=== PATIENT | female | born 1950 | race Caucasian/White ===

== ENCOUNTER 2019-03-22 09:16 | Outpatient (CLI) | payer BC ==
--- NOTE | 2019-03-22 09:49 | MMO ---
Bilateral MAMMO Bilat Screen [facility]. CLINICAL HISTORY: Patient is 69 years old and is seen for screening. The patient has no family history of breast cancer. The patient has no personal history of cancer. VIEWS: The views performed were: bilateral craniocaudal with tomosynthesis and bilateral mediolateral oblique with tomosynthesis. MAMMOGRAM FINDINGS: There are scattered fibroglandular densities. There are no suspicious masses, suspicious calcifications, or new areas of architectural distortion. IMPRESSION: THERE IS NO MAMMOGRAPHIC EVIDENCE OF MALIGNANCY. A ROUTINE FOLLOW-UP MAMMOGRAM IN 1 YEAR IS RECOMMENDED. THE RESULTS OF THIS EXAM WERE SENT TO THE PATIENT. ACR BI-RADS Category 1 - Negative MAMMOGRAPHY NOTE: 1. A negative mammogram report should not delay a biopsy if a dominant of clinically suspicious mass is present. 2. Approximately 10% to 15% of breast cancers are not detected by mammography. 3. Adenosis and dense breasts may obscure an underlying neoplasm.
== END 2019-03-22 09:17 | disposition home or self-care (01) ==
LOC: BICMAMMO 09:16
PROVIDERS: ATTEND Family Medicine
DX: Z12.31 Encounter for screening mammogram for malignant neoplasm of breast (principal)
CPT/HCPCS: 77063; 77067

== ENCOUNTER 2019-12-08 10:50 | Outpatient (CLI) | payer BC | END 2019-12-08 10:51 | disposition home or self-care (01) | LOC: DTY/OP 10:50 | PROVIDERS: ATTEND Surgery | DX: E66.01 Morbid (severe) obesity due to excess calories (principal) | CPT/HCPCS: 97802 ==

== ENCOUNTER 2020-01-19 05:57 | Inpatient (IN) | payer OTHER ==
[2020-01-19] MEDS ORDERED: Heparin 5,000 UNITS/ML VIAL ONE (06:27)
[2020-01-19] MEDS ORDERED: HYDROmorphone 0.5 MG/0.5 ML SYRINGE ONE (06:37)
[2020-01-19] MEDS ORDERED: Fentanyl 100 MCG/2 ML VIAL ONE ×3 (06:37→09:21)
[2020-01-19] MEDS ORDERED: Lidocaine 1% w/Epinephrine 1:100K 20 ML VIAL ONE (06:53)
[2020-01-19] MEDS ORDERED: Bupivacaine 0.25% HCL 30 ML VIAL ONE (06:53)
--- NOTE | 2020-01-19 07:28 | HP ---
CHIEF COMPLAINT: Morbid obesity. HISTORY OF PRESENT ILLNESS: The patient is a 69-year-old female, who has been overweight for many years, attempted multiple weight loss programs without success. She is here for sleeve gastrectomy. PAST MEDICAL HISTORY: Significant for history of deep venous thrombosis, pulmonary embolus in 2014, hypothyroidism, arthritis, seasonal allergies, and hyperlipidemia. PAST SURGICAL HISTORY: Include section, hysterectomy, foot surgery, sinuplasty, cataract, and dental implants. MEDICATIONS: 1. Xarelto. 2. Montelukast sodium 10 mg. 3. Levothyroxine. ALLERGIES: SHE HAS ALLERGY TO WHEAT. FAMILY HISTORY: Heart disease and hypertension. SOCIAL HISTORY: She is . No tobacco. Occasional alcohol. PHYSICAL EXAMINATION: VITAL SIGNS: Height 59, weight 194, and body mass index 39.14. GENERAL: Well-developed, well-nourished female, in no apparent distress. HEENT: Unremarkable. LUNGS: Clear. HEART: Regular rate and rhythm. ABDOMEN: Soft, nondistended, and nontender. BACK: Nontender. Good pulses. Minimal pedal edema. ASSESSMENT: Morbid obesity with comorbidities. PLAN: Laparoscopic sleeve gastrectomy. CONSENT: I have discussed planned procedure as well as risk of bleeding, infection, injury to esophagus, spleen, loops of bowel, need to open, leakage from staple line. She understands and gives informed consent. Job ID: [id number]
[2020-01-19] MEDS ORDERED: Promethazine HCl 25 MG/ML VIAL SLOW IVP PRN (08:13)
[2020-01-19] MEDS ORDERED: Ondansetron HCl/PF 4 MG/2 ML Vial IVP PRN (08:13)
[2020-01-19] MEDS ORDERED: HYDROmorphone 2 MG/ML VIAL SLOW IVP PRN (08:13)
[2020-01-19] MEDS ORDERED: Meperidine HCl/PF 25 MG/ML VIAL SLOW IVP PRN (08:13)
[2020-01-19] MEDS ORDERED: Ondansetron PF 4 MG/2 ML Vial IVP PRN ×2 (08:47→08:57)
[2020-01-19] MEDS ORDERED: Dextrose 50% Abboject 50 ML SYRINGE SLOW IVP PRN (08:47)
[2020-01-19] MEDS ORDERED: Hydrocodone-Acetamin 15 ML UDCUP PO PRN (08:47)
[2020-01-19] MEDS ORDERED: diphenhydrAMINE 50 MG/ML VIAL IVP PRN ×2 (08:47→08:57)
[2020-01-19] MEDS ORDERED: hydrALAZINE 20 MG/ML VIAL SLOW IVP PRN (08:47)
[2020-01-19] MEDS ORDERED: Promethazine HCl 25 MG/ML VIAL IM PRN ×2 (08:47→08:57)
[2020-01-19] MEDS ORDERED: Dextrose 5% in Water 1,000 ML IV PRN (08:47)
[2020-01-19] MEDS ORDERED: Zolpidem Tartrate 5 MG TAB PO PRN (08:57)
[2020-01-19] MEDS ORDERED: fentaNYL Citrate/PF 2,000 MCG in Sodium Chloride 0.9% 60 ML IV PRN (08:57)
[2020-01-19] MEDS ORDERED: diphenhydrAMINE 50 MG/ML VIAL IM PRN (08:57)
[2020-01-19] MEDS ORDERED: Naloxone HCl 0.4 mg/ml Vial IV PRN (08:57)
[2020-01-19] MEDS ORDERED: diphenhydrAMINE 25 MG CAP PO PRN (08:57)
[2020-01-19] MEDS ORDERED: Communication Order-Pharmacy FS SCH (09:00)
[2020-01-19] MEDS ORDERED: Sodium Chloride 0.9% (PF) 10 ML VIAL FS PRN (09:10)
[2020-01-19] MEDS ORDERED: Promethazine HCl 25 MG/ML VIAL ONE (09:21)
[2020-01-19] MEDS ORDERED: Rocuronium Bromide 10 MG/ML (10ML VIAL) ONE (10:59)
[2020-01-19] MEDS ORDERED: PROPOFOL 200 MG/20 ML VIAL ONE (10:59)
[2020-01-19] MEDS ORDERED: Glycopyrrolate 0.2 MG/ML 5 ML SYRINGE ONE (10:59)
[2020-01-19] MEDS ORDERED: Ondansetron PF 4 MG/2 ML Vial ONE (10:59)
[2020-01-19] MEDS ORDERED: Ketorolac Tromethamine 30 MG/ML VIAL ONE (10:59)
[2020-01-19] MEDS ORDERED: EPHEDRINE 25 MG/5 ML SYRINGE ONE (10:59)
[2020-01-19] MEDS ORDERED: Dexamethasone 20 MG/5 ML VIAL ONE (10:59)
[2020-01-19] MEDS ORDERED: Lidocaine 1% PF 5 ML VIAL ONE (10:59)
[2020-01-19] MEDS: D5 1/2 NS w/20 mEq KCL 1,000 ML IV SCH ×2 (11:44→16:30)
[2020-01-19] MEDS: Ketorolac Tromethamine 30 MG/ML VIAL IVP SCH ×2 (11:45→17:53)
[2020-01-19] MEDS: Pantoprazole 40 MG VIAL IVP SCH (11:48)
--- NOTE | 2020-01-19 14:10 | OP ---
DATE OF PROCEDURE: 01/19/2020 PREOPERATIVE DIAGNOSIS: Morbid obesity. PROCEDURES PERFORMED: Laparoscopic sleeve gastrectomy, intraoperative esophagogastroscopy. INDICATIONS: The patient is a 69-year-old female, who has been overweight for many years, attempted multiple weight loss programs without success. FINDINGS: A 38-Greek bougie used. She did not have a left lobe of the liver, so no liver retractor was required. DESCRIPTION OF PROCEDURE: After informed consent was obtained, the patient was taken to the operating room, given general endotracheal anesthesia, placed in the supine position. Abdomen was prepped and draped in usual fashion. Local anesthesia was infiltrated subcutaneously and deep and a 12-mm incision was performed approximately 8 inches above the xiphoid slight to left. Veress needle inserted. Drop test performed. Pneumoperitoneum was created to a pressure of 15 mmHg. A 0-degree laparoscope inserted. There was no left lobe of the liver, so we did not place a liver retractor. A 12-mm port placed on the right beneath at the level of the pylorus and two 12s placed on the left subcostal. The omentum was taken off the greater curvature 5 cm from the pylorus utilizing the LigaSure. Short gastrics divided with LigaSure. Left crura defined with the LigaSure. She had a small hiatal hernia, which was dissected out, but there really was not any closure needed. The 38-Greek bougie inserted, directed into the antrum. The linear 60 mm green load stapler used to divide the antrum to the bougie, gold load along the bougie, and a series of blues through the angle of His. Intraoperative endoscopy was performed. The video endoscope was inserted under direct vision and advanced into the sleeve. The staple line inspected. There was no bleeding. Staple line then tested by inflating the new stomach with pressurized air under water. There was no air leak. Stomach was decompressed. Scope was removed. The remnant stomach removed from the abdomen through the left lateral port site. The fascia was closed with 0 Vicryl suture and the GraNee needle. Hemostasis was assured. Trocars and retractors removed. Skin closed with interrupted 4-0 Rapide. Dermabond applied. The patient tolerated the procedure well, transferred to Recovery in good condition. Sponge and needle count verified correct x2. Job ID: [id number]
[2020-01-19 14:38] VITALS: BMI 37.0
[2020-01-19] MEDS: CEFAZOLIN 2 GM in Premix Bag 1 BAG IVPB SCH (16:02)
[2020-01-20] MEDS: CEFAZOLIN 2 GM in Premix Bag 1 BAG IVPB SCH (00:04)
[2020-01-20] MEDS: Ketorolac Tromethamine 30 MG/ML VIAL IVP SCH ×3 (00:05→13:02)
[2020-01-20] MEDS: D5 1/2 NS w/20 mEq KCL 1,000 ML IV SCH ×2 (00:07→08:44)
[2020-01-20 05:37] LABS: #Lymphocytes 1.1 thou/uL (1.20-3.40); #Monocytes 0.6 thou/uL (0.11-0.59); #Neutrophils 7.2 thou/uL (1.40-6.50); %Basophils 0.4 % (0.0-1.0); %Eosinophils 0.1 % (0.0-10.0); %Lymphocytes 12.4 % (21.0-51.0); %Monocytes 6.3 % (0.0-10.0); %Neutrophils 80.9 % (42.0-75.0); Hemoglobin 12.6 g/dL (12.0-16.0); Mean Corpuscular Hemoglobin 33.9 pg (27.0-31.0); Mean Corpuscular Volume 96.8 fL (78.0-98.0); Mean Platelet Volume 7.3 fL (7.4-10.4); Platelet Count 191 thou/uL (130-400); RBC Distribution Width 11.3 % (11.5-14.5); Red Blood Cell (RBC) Count 3.73 mill/uL (4.20-5.40)
[2020-01-20 06:00] LABS: Anion Gap 9 mmol/L (10-20); BUN (Urea Nitrogen) 7 mg/dL (9.8-20.1); Calc. Creatinine Clearance 104 mL/min (70-130); Calcium 8.6 mg/dL (7.8-10.44); Carbon Dioxide 22 mmol/L (23-31); Chloride 106 mmol/L (98-107); Estimated GFR-MDRD 85; Glucose 124 mg/dL (80-115); Potassium 4.2 mmol/L (3.5-5.1); Sodium 133 mmol/L (136-145)
[2020-01-20] MEDS ORDERED: Enoxaparin Sodium 40 MG/0.4 ML SYRINGE SC SCH ×2 (06:00→21:00)
--- NOTE | 2020-01-20 08:07 | RAD ---
XR UGI Single Contrast No Air HISTORY: Status post recent vertical sleeve gastrectomy Post bariatric surgery evaluation Procedure: Single sip swallow study was performed with administration of 15 mL contrast under fluoros copy. FINDINGS: Contrast traverses the gastroesophageal junction. No leak or evidence of obstruction. IMPRESSION: Normal study.
[2020-01-20] MEDS: Pantoprazole 40 MG VIAL IVP SCH (08:43)
[2020-01-20 10:33] VITALS: BP 109/72; TEMP 98.3
[2020-01-20] MEDS ORDERED: Hydrocodone-Acetamin 15 ML UDCUP PO PRN (13:24)
--- NOTE | 2020-01-20 15:54 | DIS ---
DATE OF ADMISSION: 01/19/2020 DATE OF DISCHARGE: 01/20/2020 DISCHARGE DIAGNOSIS: Morbid obesity. PROCEDURES DURING ADMISSION: Laparoscopic sleeve gastrectomy, intraoperative esophagogastroscopy, and postoperative Gastrografin swallow. HOSPITAL COURSE: The patient was admitted, taken to the operating room, where she underwent sleeve gastrectomy. Postoperatively, she has done well. Her pain is controlled on p.o. medications. She is tolerating liquids well. She is discharged home on hydrocodone and Zofran. She will follow up with me in 2 weeks. Job ID: [id number]
== END 2020-01-20 15:30 | disposition home or self-care (01) | DRG 621 ==
LOC: SURG A 05:57 → SJJU 10:48 → EDSTATUS 13:55
PROVIDERS: ADMIT Surgery; ATTEND Surgery
PROC: 0DB64Z3 Excision of Stomach, Percutaneous Endoscopic Approach, Vertical (ICD-10-PCS; principal; 2020-01-19)
PROC: 0DJ08ZZ Inspection of Upper Intestinal Tract, Via Natural or Artificial Opening Endoscopic (ICD-10-PCS; 2020-01-19)
DX: E66.01 Morbid (severe) obesity due to excess calories (principal); E03.9 Hypothyroidism, unspecified; E78.5 Hyperlipidemia, unspecified; J30.2 Other seasonal allergic rhinitis; Z79.899 Other long term (current) drug therapy; Z79.890 Hormone replacement therapy; Z86.711 Personal history of pulmonary embolism; Z86.718 Personal history of other venous thrombosis and embolism; Z79.01 Long term (current) use of anticoagulants; Z91.19 Patient's noncompliance with other medical treatment and regimen; Z68.37 Body mass index [BMI] 37.0-37.9, adult
CPT/HCPCS: 36415; 74240; 80048; 85025; 88307; 88312; 93005; 93010; C9113; J0690; J1100; J1170; J1644; J1650; J1885; J2001; J2405; J2550; J2704; J3010; S0020

== ENCOUNTER 2020-12-04 14:18 | Outpatient (CLI) | payer BC ==
--- NOTE | 2020-12-04 15:06 | MMO ---
Bilateral MAMMO Bilat Screen [facility]. CLINICAL HISTORY: Patient is 70 years old and is seen for screening. The patient has no family history of breast cancer. The patient has no personal history of cancer. VIEWS: The views performed were: bilateral craniocaudal with tomosynthesis and bilateral mediolateral oblique with tomosynthesis. FILMS COMPARED: The present examination has been compared to prior imaging studies performed at [facility] on 03/22/2019, and at [facility] on 02/27/2011. This study has been interpreted with the assistance of computer-aided detection. MAMMOGRAM FINDINGS: There are scattered fibroglandular densities. There are stable benign appearing calcifications seen in both breasts. There are no suspicious masses, suspicious calcifications, or new areas of architectural distortion. IMPRESSION: THERE IS NO MAMMOGRAPHIC EVIDENCE OF MALIGNANCY. A ROUTINE FOLLOW-UP MAMMOGRAM IN 1 YEAR IS RECOMMENDED. THE RESULTS OF THIS EXAM WERE SENT TO THE PATIENT. ACR BI-RADS Category 2 - Benign finding MAMMOGRAPHY NOTE: 1. A negative mammogram report should not delay a biopsy if a dominant of clinically suspicious mass is present. 2. Approximately 10% to 15% of breast cancers are not detected by mammography. 3. Adenosis and dense breasts may obscure an underlying neoplasm. Reported by: SYLVAIN DUMONT MD Electonically Signed: [id number]
--- NOTE | 2020-12-04 15:42 | BD ---
DEXA BONE DENSITY SCAN: DATE: 12/04/2020 HISTORY: Postmenopausal female, evaluate for osteoporosis. FINDINGS: Lumbar Spine: BMD (g/cm2) L1 0.739 T-Score: -2.3 L2 0.815 T-Score: -1.9 L3 0.801 T-Score: -2.6 L4 0.834 T-Score: -2.1 L1-L4 0.801 T-Score: -2.2 Femoral Neck: 0.559 T-Score: -2.6 Total Femur: 0.679 T-Score: -2.2 FRAX-WHO fracture risk assessment tool not reported as some T-scores are at or below -2.5. 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 Diffuse lumbar spine osteopenia. Transcribed Date/Time: 12/04/2020 3:49 PM
== END 2020-12-04 14:19 | disposition home or self-care (01) ==
LOC: BICMAMMO 14:18
PROVIDERS: ATTEND Nurse Practitioner Adult Health
DX: Z12.31 Encounter for screening mammogram for malignant neoplasm of breast (principal); Z13.820 Encounter for screening for osteoporosis; M85.88 Other specified disorders of bone density and structure, other site; M81.0 Age-related osteoporosis without current pathological fracture; Z78.0 Asymptomatic menopausal state
CPT/HCPCS: 77063; 77067; 77080

== ENCOUNTER 2021-04-19 09:33 | Outpatient (CLI) | payer BC, MEDICARE | END 2021-04-19 09:34 | disposition home or self-care (01) | LOC: SCSRAD 09:33 | PROVIDERS: ATTEND Internal Medicine Rheumatology | DX: M81.0 Age-related osteoporosis without current pathological fracture (principal); M47.814 Spondylosis without myelopathy or radiculopathy, thoracic region | CPT/HCPCS: 72070 ==

== ENCOUNTER 2022-06-25 11:13 | Outpatient (CLI) | payer MEDICARE, BC | END 2022-06-25 11:14 | disposition home or self-care (01) | LOC: BICMAMMO 11:13 | PROVIDERS: ATTEND Nurse Practitioner Adult Health | DX: Z12.31 Encounter for screening mammogram for malignant neoplasm of breast (principal) | CPT/HCPCS: 77063; 77067 ==

== ENCOUNTER 2023-03-24 08:10 | Outpatient (CLI) | payer MEDICARE, BC ==
[2023-03-24] MEDS ORDERED: Iopamidol 370 76% 100 ML VIAL ONE (08:58)
== END 2023-03-24 08:11 | disposition home or self-care (01) ==
LOC: BICCT 08:10
PROVIDERS: ATTEND Surgery
DX: R10.11 Right upper quadrant pain (principal)
CPT/HCPCS: 74177; 82565